=== PATIENT | male | born 1970 | race Caucasian/White ===

== ENCOUNTER 2017-01-22 09:02 | Emergency (ER) | payer OTHER ==
--- NOTE | 2017-01-22 09:06 | ED.REPORT ---
HPI-General Illness Date of Service Jan 22, 2017 ED Provider: Nursing Notes Stated Complaint: NEEDLE STICK/L&I Chief Complaint: Post Exposure Body Fluids General Time Seen by MD: 09:05 Lilian Stringer MD Jan 22, 2017 09:06 Jan 22, 2017 09:26 Lilian Stringer MD Jan 22, 2017 09:06 Jan 22, 2017 09:26
--- NOTE | 2017-01-22 09:54 | PCM.EDPN ---
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 Presents to ER for evaluation. Blood drawn and exposure panel 7 ordered. Provider left prior to any additional exam, history or interventions. Employee Health is aware and will follow up. Lilian Stringer MD Jan 22, 2017 09:54
== END 2017-01-22 09:15 | disposition left against medical advice (07) ==
LOC: SED 09:02
DX: Z77.21 Contact with and (suspected) exposure to potentially hazardous body fluids (principal); Z53.29 Procedure and treatment not carried out because of patient's decision for other reasons; Z11.4 Encounter for screening for human immunodeficiency virus [HIV]
CPT/HCPCS: 36415; 86706; 87340; G0433